=== PATIENT | male | born 1980 ===

== ENCOUNTER 2022-06-22 17:16 | Emergency (ER) | payer BC ==
[2022-06-22 20:58] LABS: CORONAVIRUS COVID-19 NAA NEGATIVE (NEGATIVE); INFLUENZA A NAA NEGATIVE (NEGATIVE); INFLUENZA B NAA NEGATIVE (NEGATIVE)
== END 2022-06-22 20:38 | disposition home or self-care (01) ==
LOC: MW.ED 17:16
DX: B34.9 Viral infection, unspecified (principal); Z20.822 Contact with and (suspected) exposure to COVID-19
CPT/HCPCS: 0240U; 99284; 99282